=== PATIENT | male | born 1970 | race Caucasian/White ===

== ENCOUNTER 2019-02-13 19:55 | Observation (INO) | payer OTHER ==
[~2019-02-13] VITALS: Ht 167.6 cm; Wt 72.1 kg
[~2019-02-13 19:55] MED LIST: CRESTOR; FENOFIBRATE PO; HCTZ; LISINOPRIL PO; OVIDREL250 MCG/0.; PROGESTERO50 MG/1 ML; TESTOSTERONE IM; VIVANCE
[2019-02-13 20:00] VITALS: BP 142/88
[2019-02-13 20:40] VITALS: BP 142/88
--- NOTE | 2019-02-13 20:40 | NUR ---
patient received to room 294 ambulatory from [facility]. vss. no c/o pain noted. admit assessment/history obtained. iv #20 gauge placed to left hand x 1 stick. patient instructed to call for assistance when needed.
[2019-02-13] MEDS ORDERED: ACETAMINOPHEN 325 MG TAB PO PRN (22:15)
[2019-02-13] MEDS ORDERED: DEXTROSE 5%/0.9% SOD CHL 1,000 ML IV ONE (22:40)
[2019-02-13] MEDS: DEXTROSE 5%/0.9% SOD CHL 1,000 ML IV SCH (22:45)
--- NOTE | 2019-02-13 22:45 | NUR ---
ivf initiated per orders.
--- NOTE | 2019-02-13 23:40 | NUR ---
patient medicated with tylenol 650 mg po for c/o headache 02/03 at this time.
[2019-02-14] VITALS (7 sets, daily range): BP systolic 126–139; BP diastolic 75–90
[2019-02-14] MEDS ORDERED: MORPHINE SULFATE 2 MG/ML SYR 1ML IV PRN (00:30)
--- NOTE | 2019-02-14 00:30 | NUR ---
here to see patient. pain medication ordered prn pain.
--- NOTE | 2019-02-14 02:30 | NUR ---
patient continues to have loose stools. was made aware of this.
[2019-02-14] MEDS ORDERED: HYDROCHLOROTHIA25 MG PO (02:57)
[2019-02-14] MEDS ORDERED: CRESTOR10 MG PO (02:59)
[2019-02-14] MEDS ORDERED: DEXTROAMPHETAMINE PO (03:16)
[2019-02-14] MEDS: METRONIDAZOLE 500MG/NS 100ML 100 ML IV SCH ×3 (05:25→21:48)
[2019-02-14 06:42] LABS: BASOPHILS % 0.4 % (0.0-1.0); EOSINOPHILS # (AUTO) 0.1 (0.0-0.4); EOSINOPHILS % 1.1 % (0.0-6.0); HEMOGLOBIN 15.4 g/dL (14.0-18.0); LYMPHOCYTES % 21.1 % (18.0-39.1); MEAN CORPUSCULAR HEMOGLOBIN 30.1 pg (28-32); MEAN CORPUSCULAR HGB CONC 32.8 g/dL (31-35); MEAN CORPUSCULAR VOLUME 91.8 fL (81-99); MONOCYTES # (AUTO) 0.7 (0.2-0.8); MONOCYTES % 16.2 % (4.4-11.3); NEUTROPHILS # (AUTO) 2.7 (2.1-6.9); NEUTROPHILS % 60.8 % (38.7-80.0); PLATELET COUNT 194 x10e3/uL (140-360); RED BLOOD COUNT 5.12 x10e6/uL (4.3-5.7); RED CELL DISTRIBUTION WIDTH 13.7 % (11.7-14.4)
--- NOTE | 2019-02-14 06:54 | NUR ---
RECEIVED PATIENT RESTING IN BED. NO ACUTE DISTRESS NOTED. PAIN AT A TOLERABLE LEVEL AT THIS TIME. CALL LIGHT WITHIN REACH. BED IN THE LOWEST POSITION.
[2019-02-14 06:59] LABS: ALANINE AMINOTRANSFERASE 19 IU/L (0-55); ALBUMIN 2.6 g/dL (3.5-5.0); ALBUMIN/GLOBULIN RATIO 0.8 (0.8-2.0); ALKALINE PHOSPHATASE 31 IU/L (40-150); BLOOD UREA NITROGEN 6 mg/dL (7-26); BUN/CREATININE RATIO 6 (6-25); CALCIUM 8.9 mg/dL (8.4-10.2); CARBON DIOXIDE 25 mmol/L (22-29); CHLORIDE 102 mmol/L (98-107); CREATININE, SERUM 0.97 mg/dL (0.72-1.25); EST GLOMERULAR FILTRATION RATE > 60 ML/MIN (60-); GLUCOSE 102 mg/dL (74-118); SODIUM 136 mmol/L (136-145)
[2019-02-14] MEDS ORDERED: LISINOPRIL30 MG PO (09:35)
[2019-02-14] MEDS ORDERED: FENOFIBRATE160 MG PO (09:35)
[2019-02-14] MEDS: DEXTROAMPHETAMINE PO SCH (10:15)
[2019-02-14] MEDS: HYDROCHLOROTHIAZIDE 25 MG TAB PO SCH (10:20)
[2019-02-14] MEDS: LISINOPRIL 20 MG TAB PO SCH (10:20)
[2019-02-14] MEDS: DEXTROSE 5%/0.9% SOD CHL 1,000 ML IV SCH ×2 (10:20→20:41)
[2019-02-14] MEDS ORDERED: TESTOSTERONE IM SCH (10:30)
[2019-02-14] MEDS ORDERED: POTASSIUM CHLORIDE 20 MEQ TAB CR PO NR (11:15)
--- NOTE | 2019-02-14 18:57 | NUR ---
REPORT GIVEN TO ONCOMING NURSE, WALKING ROUNDS DONE. PATIENT IS IN STABLE CONDITION. NO ACUTE DISTRESS NOTED. FAMILY AT BEDSIDE. CALL LIGHT WITHIN REACH. BED IN THE LOWEST POSITION.
[2019-02-14] MEDS: SIMVASTATIN 40 MG TAB PO SCH (20:41)
[2019-02-14] MEDS: FENOFIBRATE 145 MG TAB PO SCH (20:41)
[2019-02-14] MEDS ORDERED: POTASSIUM CHLORIDE 20 MEQ TAB CR PO STA (21:29)
[2019-02-14] MEDS ORDERED: DICYCLOMINE HCL 20 MG TAB PO ONE (21:30)
[2019-02-14] MEDS ORDERED: POTASSIUM CHLORIDE 20 MEQ TAB CR PO SCH (22:30)
[2019-02-15] VITALS (8 sets, daily range): BP systolic 105–133; BP diastolic 59–73
[2019-02-15] MEDS: METRONIDAZOLE 500MG/NS 100ML 100 ML IV SCH ×3 (05:39→21:09)
[2019-02-15] MEDS: DEXTROSE 5%/0.9% SOD CHL 1,000 ML IV SCH ×2 (05:39→15:48)
[2019-02-15 06:21] LABS: BASOPHILS % 0.7 % (0.0-1.0); EOSINOPHILS # (AUTO) 0.1 (0.0-0.4); EOSINOPHILS % 2.9 % (0.0-6.0); HEMATOCRIT 44.5 % (38.2-49.6); HEMOGLOBIN 14.9 g/dL (14.0-18.0); LYMPHOCYTES # (AUTO) 1.4 (1.0-3.2); LYMPHOCYTES % 30.7 % (18.0-39.1); MEAN CORPUSCULAR HEMOGLOBIN 30.2 pg (28-32); MEAN CORPUSCULAR HGB CONC 33.5 g/dL (31-35); MEAN CORPUSCULAR VOLUME 90.1 fL (81-99); MONOCYTES # (AUTO) 0.7 (0.2-0.8); MONOCYTES % 15.8 % (4.4-11.3); NEUTROPHILS # (AUTO) 2.2 (2.1-6.9); NEUTROPHILS % 49.2 % (38.7-80.0); PLATELET COUNT 221 x10e3/uL (140-360); RED BLOOD COUNT 4.94 x10e6/uL (4.3-5.7); RED CELL DISTRIBUTION WIDTH 13.6 % (11.7-14.4)
[2019-02-15 06:43] LABS: ALANINE AMINOTRANSFERASE 17 IU/L (0-55); ALBUMIN 2.5 g/dL (3.5-5.0); ALBUMIN/GLOBULIN RATIO 0.8 (0.8-2.0); ALKALINE PHOSPHATASE 38 IU/L (40-150); ANION GAP 10.9 mmol/L (8-16); BLOOD UREA NITROGEN < 5 mg/dL (7-26); CARBON DIOXIDE 23 mmol/L (22-29); CHLORIDE 109 mmol/L (98-107); CREATININE, SERUM 0.83 mg/dL (0.72-1.25); EST GLOMERULAR FILTRATION RATE > 60 ML/MIN (60-); GLUCOSE 113 mg/dL (74-118); POTASSIUM 3.9 mmol/L (3.5-5.1); SODIUM 139 mmol/L (136-145)
[2019-02-15 06:58] LABS: BUN/CREATININE RATIO 6 (6-25)
[2019-02-15] MEDS: HYDROCHLOROTHIAZIDE 25 MG TAB PO SCH (08:08)
[2019-02-15] MEDS: DICYCLOMINE HCL 20 MG TAB PO SCH ×3 (08:08→20:40)
[2019-02-15] MEDS: DEXTROAMPHETAMINE PO SCH (08:08)
[2019-02-15] MEDS: LISINOPRIL 20 MG TAB PO SCH (08:09)
[2019-02-15 12:15] LABS: WBC,FECAL (FECAL LACTOFERRIN) POSITIVE (NEGATIVE)
[2019-02-15 12:16] LABS: C DIFFICILE TOXIN A&B AMP PROB NEGATIVE (NEGATIVE)
--- NOTE | 2019-02-15 19:00 | NUR ---
Patient received awake, alert, lying quietly in bed. no c/o pain noted. ivf continue to infuse without difficulty. pm assessment complete. patient instructed to call for assistance when needed.
[2019-02-15] MEDS: SIMVASTATIN 40 MG TAB PO SCH (20:40)
[2019-02-15] MEDS: FENOFIBRATE 145 MG TAB PO SCH (20:40)
[2019-02-15] MEDS ORDERED: FENOFIBRATE 145 MG TAB PO SCH (21:00)
[2019-02-16] VITALS: BP 111/72
[2019-02-16 04:00] VITALS: BP 129/78
[2019-02-16] MEDS: DEXTROSE 5%/0.9% SOD CHL 1,000 ML IV SCH (04:00)
[2019-02-16] MEDS: METRONIDAZOLE 500MG/NS 100ML 100 ML IV SCH (05:51)
--- NOTE | 2019-02-16 07:18 | NUR ---
pt alert resp even and unlabored at this time, no distress noted no c/o pain when asked, call light in reach.
[2019-02-16 07:35] VITALS: BP 119/64
[2019-02-16 08:00] VITALS: BP 119/64
[2019-02-16] MEDS: DEXTROAMPHETAMINE PO SCH (09:00)
[2019-02-16] MEDS: HYDROCHLOROTHIAZIDE 25 MG TAB PO SCH (09:03)
[2019-02-16] MEDS: DICYCLOMINE HCL 20 MG TAB PO SCH (09:03)
[2019-02-16] MEDS: LISINOPRIL 20 MG TAB PO SCH (09:04)
--- NOTE | 2019-02-16 09:59 | NUR ---
pt discharged home with prescriptions no distress noted, pt has no c/o of diarrhea, no pain, pt was educated on medications, iv site removed at this time no redness no swelling to site.
[2019-02-19] MEDS ORDERED: TESTOSTERONE IM SCH (09:00)
== END 2019-02-16 10:03 | disposition home or self-care (01) ==
LOC: MED/SURG3 19:55
PROVIDERS: ADMIT Internal Medicine; ATTEND Internal Medicine
DX: K52.9 Noninfective gastroenteritis and colitis, unspecified (principal); I10 Essential (primary) hypertension; Z82.49 Family history of ischemic heart disease and other diseases of the circulatory system; E78.5 Hyperlipidemia, unspecified; Z86.010 Personal history of colon polyps
CPT/HCPCS: 36415 ×2; 80053 ×2; 83630; 83735; 83993; 85025 ×2; 87045; 87177; 87493; G0378 ×4; J7042 ×4

== ENCOUNTER → 2019-03-19 | Outpatient (CLI) | payer OTHER ==
[~2019-03-19] MED LIST changes: +CRESTOR10 MG PO; +DEXTROAMPHETAMINE PO; +FENOFIBRATE160 MG PO; +HYDROCHLOROTHIA25 MG PO; +LISINOPRIL30 MG PO
--- NOTE | 2019-03-19 10:41 | Diagnostic Imaging Report ---
EXAM: US ABDOMEN COMPLETE DATE: 03/19/2019 8:55 AM Time stamp on exam: INDICATION: Right hepatic lesion, left kidney lesion COMPARISON: No images are available. The report for a CT abdomen and pelvis performed 02/12/2019 is available for review. TECHNIQUE: Transverse and longitudinal hammond scale and color doppler sonographic images of the upper abdomen were obtained. FINDINGS: LIVER 13.9 cm in the right midclavicular line. Normal echogenicity, normal contour. In the right lobe there is a round lesion of mixed echogenicity though predominantly hyperechoic measuring 2.1 x 1.9 x 2.3 cm. SPLEEN 7.8 cm in maximum diameter. Normal echogenicity, no masses. GALLBLADDER No stones, sludge, wall-thickening or pericholecystic fluid. Negative sonographic Pike's sign. BILE DUCTS No intra nor extra-hepatic biliary dilation. Common bile duct measures 0.2 cm PANCREAS: Visualized portions are normal. RIGHT KIDNEY: 11.8 cm Echogenicity: Normal Collecting System: No hydronephrosis Stones: None Cyst/Mass: None LEFT KIDNEY: 11.3 cm Echogenicity: Normal Collecting System: No hydronephrosis Stones: None Cyst/Mass: In the lower pole there is a hyperechoic lesion without definite shadowing measuring 0.9 x 1 x 0.8 cm. No abnormality is identified within the upper pole to correspond to the CT report. VESSELS: Aorta: Nonaneurysmal Inferior Vena Cava: Patent Main Portal Vein: 1.1 cm, normal size with hepatopetal flow. FREE FLUID: None IMPRESSION: 2.3 cm predominantly hyperechoic lesion in the right hepatic lobe most likely represents a hemangioma. Echogenic lesion in the lower pole of the left kidney has sonographic findings most compatible with angiomyolipoma. CT or MRI of the abdomen with and without contrast (liver mass protocol) will allow for definitive characterization of both of the above-described lesions. Signed by: Dr. Hany Canchola M.D. on 03/19/2019 10:38 AM
== END ==
LOC: US 08:33
PROVIDERS: ATTEND Internal Medicine Gastroenterology
DX: K76.9 Liver disease, unspecified (principal)
CPT/HCPCS: 76700

== ENCOUNTER → 2019-05-17 | Outpatient (CLI) | payer OTHER ==
[~2019-05-17] MED LIST changes: +GADOBENATE DIMEGLUMINE 1 ML IV ONE; +SODIUM CHLORIDE 0.9% 100 ML 100 ML ONE
[2019-05-17 14:38] LABS: BLOOD UREA NITROGEN 13 mg/dL (7-26); BUN/CREATININE RATIO 12 (6-25); CREATININE, SERUM 1.13 mg/dL (0.72-1.25); EST GLOMERULAR FILTRATION RATE > 60 ML/MIN (60-)
--- NOTE | 2019-05-19 14:13 | Diagnostic Imaging Report ---
EXAMINATION: MRI Abdomen with and without contrast. TECHNIQUE: Axial T1 nonfat sat in and out of phase, axial T2 fat sat, coronal T2 nonfat sat, axial DWI and ADC MR images of the abdomen were obtained before and after the administration of 15 cc of gadolinium. Axial T1 fat sat GRE dynamic images in precontrast, arterial, venous and delayed phases were obtained. CLINICAL HISTORY:Liver lesion on outside CT. Echogenic liver lesion on ultrasound COMPARISON: Abdominal ultrasound 03/19/2019. Report of CT abdomen and pelvis performed at outside institution February 12, 2019 was reviewed. FINDINGS: LOWER THORAX: Unremarkable. LIVER: The hepatic contour is normal.. No hepatic signal abnormality. * 2.1 x 1.6 x 1.8 cm T1 hypointense, T2 hyperintense lesion in hepatic segment (series 5, image 15 and series 7, image 17), which shows peripheral nodular discontinuous enhancement on arterial phase and progressive fill-in on portal venous and delayed phases, consistent with hemangioma. * 0.2 cm T2 hyperintense, T1 hypointense, nonenhancing lesion in hepatic segment VIII at the distal (series 5, image 5 and series 7, image 17), consistent with a simple cyst. No other focal hepatic lesions.. BILIARY: No ductal dilatation or filling defect. The gallbladder has a normal appearance. PANCREAS: No mass or ductal dilatation. SPLEEN: No splenomegaly. ADRENALS: No nodules. KIDNEYS: No hydronephrosis or solid enhancing mass in the imaged portion of the kidneys. PERITONEUM / RETROPERITONEUM: No upper abdominal free fluid. GI TRACT: The visualized bowel shows no ventilation obstruction. LYMPH NODES: No upper abdominal lymphadenopathy. VESSELS: The celiac trunk, superior and inferior mesenteric and bilateral renal arteries are patent. The portal, superior mesenteric and splenic veins are patent. No collateral circulation. BONES AND SOFT TISSUES: No abnormal bone marrow signal. No soft tissue abnormalities. IMPRESSION: 1. 2.1 cm lesion in hepatic segment has imaging characteristics consistent with a hemangioma. No further diagnostic or follow-up imaging is indicated. Signed by: Dr. Bill Solorzano M.D. on 05/19/2019 2:09 PM
== END ==
LOC: MRI 13:31
PROVIDERS: ATTEND Internal Medicine Gastroenterology
DX: R16.0 Hepatomegaly, not elsewhere classified (principal)
CPT/HCPCS: 36415; 74183; 82565; 84520; A9577

== ENCOUNTER → 2025-04-20 | Day surgery (SDC) | payer BC ==
[~2025-04-20] MED LIST changes: +DEXTROAMPHETAMI PO; +FENTANYL CITRATE/PF 100MCG/2 ML INJ ONE; -GADOBENATE DIMEGLUMINE 1 ML IV ONE; +LACTATED RINGER'S 1,000 ML ONE; +MULTI-VITAMIN1 EACH PO; +OMEGA 3 FISH O1 EACH PO; +PROPOFOL IV EMULSION 50 ML IV ONE; -SODIUM CHLORIDE 0.9% 100 ML 100 ML ONE
[2025-04-20 09:36] VITALS: TEMP 97.8
[2025-04-20 10:05] VITALS: BP 111/73; PULSE 80; RESP 16; O2SAT 97
== END | disposition home or self-care (01) ==
LOC: OR 06:34
PROVIDERS: ATTEND Internal Medicine Gastroenterology
DX: Z09 Encounter for follow-up examination after completed treatment for conditions other than malignant neoplasm (principal); D12.4 Benign neoplasm of descending colon; K63.5 Polyp of colon; K57.30 Diverticulosis of large intestine without perforation or abscess without bleeding; I10 Essential (primary) hypertension; E78.00 Pure hypercholesterolemia, unspecified; E78.1 Pure hyperglyceridemia; F98.8 Other specified behavioral and emotional disorders with onset usually occurring in childhood and adolescence; Z01.810 Encounter for preprocedural cardiovascular examination
CPT/HCPCS: 45385; 93005; J2704; J3010; J7121